=== PATIENT | female | born 1960 | race Two or more races ===

== ENCOUNTER 2023-01-16 20:01 | Inpatient (IN) | payer BC, OTHER ==
[~2023-01-16] VITALS: Ht 167.6 cm; Wt 98.5 kg
[2023-01-16 20:27] LABS: Basophils # (auto) 0 10 ^3/uL (0-0.2); Basophils % (auto) 0.9 % (0.0-2.0); Eosinophils # (auto) 0.2 10 ^3/uL (0-0.8); Hematocrit 34.5 % (36.0-46.0); Hemoglobin 11.6 g/dL (12.2-16.2); Lymphocytes # (auto) 1.7 10 ^3/uL (0.4-5.4); Lymphocytes % (auto) 34.6 % (10.0-50.0); Mean Corpuscular Hemoglobin 28.8 pg (28.0-32.0); Mean Corpuscular Hgb Conc. 33.7 g/dL (32.0-36.0); Mean Corpuscular Volume 85.5 fL (80.0-100.0); Monocytes # (auto) 0.4 10 ^3/uL (0-1.3); Monocytes % (auto) 7.1 % (0.0-12.0); Neutrophils # (auto) 2.8 10 ^3/uL (1.6-8.6); Neutrophils % (auto) 54.4 % (37.0-80.0); Nucleated Red Blood Cells % 0.1 %; Red Blood Cells 4.03 10^6/uL (4.0-5.20); Red Cell Distribution Width 13.6 % (11.8-14.3); White Blood Cell 5.1 10^3/uL (4.4-10.8)
[2023-01-16 20:42] LABS: INR 0.94 (0.9-1.15); Partial Thromboplastin Time 28.2 sec (24.6-33.4)
[2023-01-16 20:44] LABS: Albumin 3.5 g/dL (3.4-5.0); Calcium 8.3 mg/dL (8.5-10.1); Magnesium 2.4 mg/dL (1.6-2.6)
[2023-01-16 20:53] LABS: Bilirubin, Total 0.2 mg/dL (0.2-1.0); Total Protein 6.5 g/dL (6.4-8.2)
[2023-01-17] MEDS ORDERED: ONDANSETRON HCL 4 MG/2 ML VIAL IV PRN (02:45)
[2023-01-17] MEDS ORDERED: MORPHINE SULFATE INJ 2 MG/ml SYRG IV PRN (02:45)
[2023-01-17] MEDS ORDERED: NITROGLYCERIN 0.4 MG SL TAB SL PRN (02:45)
[2023-01-17] MEDS ORDERED: ADENOSINE 80 MG in GIVE UN-DILUTED 0 ML IV ONE ×2 (08:30→09:15)
[2023-01-17] MEDS: ASPirin 81 mg TAB PO SCH (10:13)
[2023-01-17] MEDS: HCTZ 25 MG TAB PO SCH (10:14)
[2023-01-17] MEDS: PANTOPRAZOLE 40 MG TAB PO SCH (10:14)
[2023-01-17] MEDS: CLOPIDOGREL BISULFATE 75 MG TAB PO SCH (10:14)
[2023-01-17] MEDS: ENOXAPARIN SOD 40 MG/0.4 ML SYRINGE SC SCH (10:15)
[2023-01-17] MEDS: LISINOPRIL 10 MG TAB PO SCH (10:15)
[2023-01-17] MEDS: ACETAMINOPHEN 325 MG TAB PO PRN ×3 (10:21→22:12)
[2023-01-17 11:29] LABS: Cholesterol 149 mg/dL (< 200); HDL Cholesterol 50 mg/dL (40-59); LDL Cholesterol 80 mg/dL (< 100)
[2023-01-17 11:31] LABS: Triglycerides 222 mg/dL (< 150)
[2023-01-17 12:35] VITALS: BP 118/62
[2023-01-17] MEDS ORDERED: LISI-287 PO (13:50)
[2023-01-17] MEDS ORDERED: PANT40T PO (13:50)
[2023-01-17] MEDS ORDERED: ATOR-47 PO (13:50)
[2023-01-17] MEDS ORDERED: ASPI81CH49 PO (13:50)
[2023-01-17] MEDS ORDERED: MET50T PO (13:50)
[2023-01-17] MEDS ORDERED: CLOP75TA70 PO (13:50)
[2023-01-17 17:00] VITALS: BP 118/63
[2023-01-17 20:00] VITALS: BP 117/56
[2023-01-17 22:00] VITALS: BP 117/56
[2023-01-17] MEDS ORDERED: ATORVASTATIN 20 MG TAB PO SCH (22:00)
[2023-01-18 05:00] VITALS: BP 129/64
[2023-01-18 06:52] LABS: BUN/Creatinine Ratio 17.1; Potassium 3.5 mmol/L (3.5-5.1)
[2023-01-18 08:48] VITALS: BP 124/51
[2023-01-18] MEDS: ASPirin 81 mg TAB PO SCH (09:56)
[2023-01-18] MEDS: HCTZ 25 MG TAB PO SCH (09:57)
[2023-01-18] MEDS: CLOPIDOGREL BISULFATE 75 MG TAB PO SCH (09:58)
[2023-01-18] MEDS: PANTOPRAZOLE 40 MG TAB PO SCH (09:58)
[2023-01-18] MEDS: LISINOPRIL 10 MG TAB PO SCH (09:58)
[2023-01-18] MEDS: ENOXAPARIN SOD 40 MG/0.4 ML SYRINGE SC SCH ×2 (09:58→10:00)
[2023-01-18] MEDS: ACETAMINOPHEN 325 MG TAB PO PRN (09:59)
[2023-01-18 12:41] VITALS: BP 122/57
[2023-01-18 12:49] VITALS: BP 124/51
== END 2023-01-18 13:32 | disposition home or self-care (01) | DRG 303 ==
LOC: ER 20:01 → TELE 01-17 02:37 → TELE-E-ADS 01-17 12:25 → TELE-WESTW 01-17 16:25
PROVIDERS: ADMIT Nurse Practitioner; ATTEND Internal Medicine
DX: I25.110 Atherosclerotic heart disease of native coronary artery with unstable angina pectoris (principal); E11.9 Type 2 diabetes mellitus without complications; E66.9 Obesity, unspecified; I10 Essential (primary) hypertension; Z20.822 Contact with and (suspected) exposure to COVID-19; E78.5 Hyperlipidemia, unspecified; Z95.5 Presence of coronary angioplasty implant and graft; I25.2 Old myocardial infarction; Z90.710 Acquired absence of both cervix and uterus; Z98.84 Bariatric surgery status; Z68.35 Body mass index [BMI] 35.0-35.9, adult; Z88.8 Allergy status to other drugs, medicaments and biological substances; Z90.49 Acquired absence of other specified parts of digestive tract
CPT/HCPCS: 36415; 71045; 73200; 78452; 80048; 80053; 80061; 83036; 83735; 83880; 84443; 84484; 85025; 85610; 85730; 87426; 93005; 93017; 93306; G0378; J0153

== ENCOUNTER 2023-10-07 14:48 | Emergency (ER) | payer SELFPAY ==
[~2023-10-07] VITALS: Ht 167.6 cm; Wt 100.0 kg
[~2023-10-07 14:48] MED LIST: ASPI81CH49 PO; ATOR-47 PO; CLOP75TA70 PO; LISI-287 PO; MET50T PO; PANT40T PO
[2023-10-07 14:50] VITALS: BP 106/63; RESP 20; O2SAT 95
[2023-10-07 15:40] LABS: Basophils # (auto) 0 10 ^3/uL (0-0.2); Basophils % (auto) 0.9 % (0.0-2.0); Eosinophils # (auto) 0.2 10 ^3/uL (0-0.8); Eosinophils % (auto) 4.3 % (0.0-7.0); Hemoglobin 11.1 g/dL (12.2-16.2); Lymphocytes # (auto) 1.9 10 ^3/uL (0.4-5.4); Lymphocytes % (auto) 42.2 % (10.0-50.0); Mean Corpuscular Hemoglobin 27.9 pg (28.0-32.0); Mean Corpuscular Hgb Conc. 32.7 g/dL (32.0-36.0); Mean Corpuscular Volume 85.4 fL (80.0-100.0); Monocytes # (auto) 0.4 10 ^3/uL (0-1.3); Neutrophils % (auto) 43.6 % (37.0-80.0); Nucleated Red Blood Cells % 0.1 %; Red Blood Cells 3.98 10^6/uL (4.0-5.20); Red Cell Distribution Width 13.5 % (11.8-14.3); White Blood Cell 4.5 10^3/uL (4.4-10.8)
[2023-10-07 15:51] LABS: Alanine Aminotransferase 51 U/L (7-40); Albumin 3.8 g/dL (3.2-4.8); Alkaline Phosphatase 107 U/L (46-116); Anion Gap 8 (5-15); Aspartate Aminotransferase 43 U/L (13-40); Blood Urea Nitrogen 17 mg/dL (9-23); Calcium 8.1 mg/dL (8.7-10.4); Carbon Dioxide 22 mmol/L (20-30); Chloride 113 mmol/L (98-107); Glucose 106 mg/dL (74-106); Magnesium 1.9 mg/dL (1.6-2.6); Potassium 3.8 mmol/L (3.5-5.1); Sodium 143 mmol/L (136-145)
[2023-10-07 15:52] VITALS: PULSE 62
[2023-10-07 15:52] LABS: Bilirubin, Total 0.3 mg/dL (0.2-1.0); Total Protein 5.8 g/dL (5.7-8.2)
[2023-10-07 16:21] LABS: INR 1.02 (0.9-1.15); Partial Thromboplastin Time 28.5 SEC (24.5-34.5); Prothrombin Time 10.9 sec (9.3-11.8)
== END 2023-10-07 16:38 | disposition left against medical advice (07) ==
LOC: EDBD 14:48 → ER 14:48
DX: R07.89 Other chest pain (principal); Z53.21 Procedure and treatment not carried out due to patient leaving prior to being seen by health care provider
CPT/HCPCS: 36415; 71045; 80053; 83735; 83880; 84484; 85025; 85610; 85730; 93005